=== PATIENT | male | born 1950 | race Caucasian/White ===

== ENCOUNTER → 2018-10-15 | Outpatient (CLI) | payer MEDICARE, BC ==
[2018-10-15 10:15] LABS: Appearance,Urine Clear (Clear); Bilirubin,Urine Negative (Negative); Blood,Urine Small (Negative); Color,Urine Yellow; Glucose,Urine (UA) Negative (Negative); Ketones,Urine Negative (Negative); Leukocyte Esterase,Urine Negative (Negative); Mucus,Urine Few /hpf; Nitrite,Urine Negative (Negative); PH, Urine 5.5 (5.0-8.0); Protein,Urine Trace (Negative); RBC,Urine 12 /hpf (0-5); Specific Gravity,Urine 1.024 (1.001-1.035); Urobilinogen,Urine <2.0 mg/dL (<2.0)
[2018-10-15 10:21] LABS: Basophils % (A) 0 %; Eosinophils % (A) 0 %; HCT 46.6 % (39.0-53.0); HGB 15.3 gm/dL (13.0-17.5); Lymphocytes # (A) 1.3 k/uL (1.0-4.8); Lymphocytes % (A) 11 %; MCHC 32.9 g/dL (31.0-37.0); MCV 94.1 fL (80.0-100.0); Mean Platelet Volume 6.7; Monocytes # (A) 0.5 k/uL (0-1.0); Monocytes % (A) 4 %; Neutrophils % (A) 84 %; Platelet Count 303 k/uL (150-450); RBC 4.95 m/uL (4.30-5.90); RDW 12.4 % (11.5-15.5); WBC 11.8 k/uL (3.8-10.6)
[2018-10-15 16:50] LABS: Vitamin D 25 Hydroxy 46.6 ng/mL (30.0-100.0)
[2018-10-15 16:51] LABS: T4, Free (Free Thyroxine) 1.1 ng/dL (0.80-1.80)
[2018-10-15 17:41] LABS: Albumin 5.1 g/dL (3.80-4.90); Albumin/Globulin Ratio 2.22 (1.20-2.10); Anion Gap 16.7 mmol/L (4.00-12.00); Calcium 10.2 mg/dL (8.7-10.3); Carbon Dioxide 29.3 mmol/L (21.6-31.8); Globulin 2.3 g/dL (2.1-3.7); LDL Cholesterol,Calculated 124.6 mg/dL (0.0-131.0); Total Bilirubin 0.5 mg/dL (0.2-1.2); Total Protein 7.4 g/dL (6.2-8.2); VLDL Calculation 25.4 mg/dL (5.00-40.00)
[2018-10-15 18:34] LABS: Hepatitis C IgG Antibody Non-Reactive (Non-Reactive)
== END | disposition home or self-care (01) ==
LOC: LABWHC1 08:11
PROVIDERS: ATTEND Nurse Practitioner Family
DX: Z00.01 Encounter for general adult medical examination with abnormal findings (principal); E55.9 Vitamin D deficiency, unspecified; R14.0 Abdominal distension (gaseous); Z11.59 Encounter for screening for other viral diseases
CPT/HCPCS: 36415; 80053; 80061; 81001; 82150; 82306; 83690; 84153; 84439; 84443; 85025; 86803

== ENCOUNTER → 2020-07-03 | Outpatient (CLI) | payer MEDICARE ==
--- NOTE | 2020-07-03 09:49 | CT ---
EXAMINATION TYPE: CT abdomen pelvis wo con DATE OF EXAM: 07/03/2020 HISTORY: Abdominal pain (suprapubic) area CT DLP: 420 mGycm. Automated Exposure Control for Dose Reduction was Utilized. TECHNIQUE: CT scan of the abdomen and pelvis is performed without oral or IV contrast. COMPARISON: CT abdomen and pelvis December 02, 2011 FINDINGS: Within the limitations of a non-contrast study, the following observations are made. LUNG BASES: No significant abnormality is appreciated. LIVER/GB: No significant abnormality is appreciated. PANCREAS: No significant abnormality is seen. SPLEEN: No significant abnormality is seen. ADRENALS: No significant abnormality is seen. KIDNEYS: No renal calculi or hydronephrosis is seen bilaterally. Bladder poorly distended with mild c oncentric wall thickening. BOWEL: Suboptimal evaluation bowel without enteric contrast. No suspicious small or large bowel dilat ation. Suspected duodenal diverticulum maximum is 46 unchanged from prior study with air-fluid level GENITAL ORGANS: Prostate gland felt mildly enlarged. Correlate clinically. Scattered adjacent pelvic phlebolith noted. LYMPH NODES: No greater than 1cm abdominal or pelvic lymph nodes are clearly appreciated. Redemonstra tion of numerous surgical clips in the retroperitoneum along the course of the aorta through the bifu rcation with additional surgical clips left groin region. Streak artifact is present making evaluatio n slightly suboptimal. OSSEOUS STRUCTURES: Slight lateral convex scoliotic curvature redemonstrated. Persistent sacralized l eft L5 segment Moderate to severe this space narrowing with endplate sclerosis L2-L3 and left L3-L4 l evels on current study has progressed from prior. Posterior spurring effaces the anterior thecal sac at L2-L3 and L4-L5 levels on sagittal and axial images. OTHER: No suspicious solid or cystic mass or fluid collection or hernia defect in the anterior abdomi nal wall. Coils right suprapubic region from prior hernia repair surgery are now present. IMPRESSION: No suspicious new or acute findings seen to account for patient's symptoms of suprapubic abdominal pain. No bowel obstruction or suspicious hernia defect noted.
== END | disposition home or self-care (01) ==
LOC: RADCTMAIN 09:00
PROVIDERS: ATTEND Family Medicine
DX: R10.9 Unspecified abdominal pain (principal)
CPT/HCPCS: 74176

== ENCOUNTER → 2021-07-14 | Outpatient (CLI) | payer MEDICARE ==
--- NOTE | 2021-07-15 04:59 | MR ---
EXAMINATION TYPE: MR cervical spine wo con DATE OF EXAM: 07/14/2021 COMPARISON: None HISTORY: Neck pain into both arms to fingers, and headaches for 10 months. Multiplanar multiecho imaging of the cervical spine without contrast. Cervical vertebra have normal alignment. There is degenerative disc space narrowing at C3-4 and C5-6 and C6-7. There is endplate spur formation and mild posterior disc bulging at these 3 levels as well. Spinal canal is narrowed to 6 mm at C3-4. Spinal canal measures 7 mm at C5-6 and C6-7. The cervical spinal cord shows no edema. There is multilevel cervical facet arthropathy. Prevertebral soft tissues are intact. There is no compression fracture. IMPRESSION: Multilevel spondylotic changes. There is some spinal stenosis as above at C3-4 and to a lesser extent C5-6 and C6-7.
== END | disposition home or self-care (01) ==
LOC: RADMRIMAIN 21:40
PROVIDERS: ATTEND Family Medicine
DX: M48.02 Spinal stenosis, cervical region (principal); M47.812 Spondylosis without myelopathy or radiculopathy, cervical region
CPT/HCPCS: 72141

== ENCOUNTER → 2022-07-01 | Outpatient (CLI) | payer MEDICARE ==
[2022-07-01 19:08] LABS: African American GFR (CKD) 81.1 (60.0-200.0); Anion Gap 11.5 mmol/L (10.00-18.00); BUN/Creat Ratio 13.64 Ratio (12.00-20.00); Blood Urea Nitrogen 14.6 mg/dL (9.0-27.0); Calcium 9.8 mg/dL (8.7-10.3); Carbon Dioxide 24.2 mmol/L (20.0-27.5); Potassium 4.5 mmol/L (3.5-5.5)
== END | disposition home or self-care (01) ==
LOC: LABWHC1 10:48
PROVIDERS: ATTEND Internal Medicine
DX: E87.5 Hyperkalemia (principal)
CPT/HCPCS: 36415; 80048

== ENCOUNTER → 2022-07-13 | Outpatient (CLI) | payer MEDICARE ==
--- NOTE | 2022-07-13 08:48 | US ---
EXAMINATION TYPE: US abdomen complete DATE OF EXAM: 07/13/2022 COMPARISON: CT CLINICAL HISTORY: R10.9 ABD DISCOMFORT. Abdominal discomfort. Patient states he has had a "teratoma c ancerous mass removed from somewhere in his abdomen". TECHNIQUE: Multiple sonographic images of the abdomen are obtained. FINDINGS: EXAM MEASUREMENTS: Liver Length: 15.5 cm Gallbladder Wall: 0.20 cm CBD: 0.5 cm Spleen: 8.7 cm Right Kidney: 10.4 x 6.2 x 5.1 cm Left Kidney: 11.2 x 4.5 x 6.0 cm CERTIFIED PROFESSIONAL CONTROLLER NOTES: Exam is limited due to overlying bowel gas. Pancreas: Limited due to gas. Liver: Appears very coarse with increased echogenicity. Gallbladder: Appears anechoic. Folds noted. Wall appears slightly jagged. Evidence for sonographic Clark's sign: No CBD: Measures upper limits Spleen: Appears wnl Right Kidney: Appearance of possible column of Jesus, no distinct masses seen Left Kidney: No hydronephrosis or masses seen Upper IVC: Appears wnl Abd Aorta: Proximal appears ectatic. Iliacs were obscured. Atherosclerotic changes noted. IMPRESSION: 1. No evidence of mass. 2. Hepatic steatosis. 3. No acute process.
== END | disposition home or self-care (01) ==
LOC: RADUSWWP 06:58
PROVIDERS: ATTEND Internal Medicine
DX: R10.9 Unspecified abdominal pain (principal)
CPT/HCPCS: 76700

== ENCOUNTER 2022-09-01 06:41 | Day surgery (SDC) | payer MEDICARE ==
[2022-08-31 11:56] VITALS: BMI 25.8
[2022-09-01] MEDS: LACTATED RINGERS 1,000 ML IV SCH ×2 (07:20→07:56)
[2022-09-01 07:35] LABS: Glucose,Whole Blood 106 mg/dL (70-110)
[2022-09-01 07:39] VITALS: RESP 16; TEMP 97.7
[2022-09-01] MEDS ORDERED: PROPOFOL 10 MG/ML 20 ML VIAL IV ONE (07:57)
[2022-09-01] MEDS ORDERED: LIDOCAINE 2% INJ 20 MG/ML (2 ML VIAL) ONE (07:57)
--- NOTE | 2022-09-01 08:15 | P.PCN ---
Date of Procedure: 09/01/22 Procedure(s) Performed: BRIEF HISTORY: Patient is a 72-year-old pleasant white male scheduled for an elective colonoscopy as a part of evaluation of prior history of colon polyps. His last colonoscopy was 5 years ago. PROCEDURE PERFORMED: Colonoscopy with biopsy. PREOPERATIVE DIAGNOSIS: History of colon polyps. IV sedation per Anesthesia. PROCEDURE: After informed consent was obtained, the patient, was brought into the endoscopy unit. IV sedation was administered by Anesthesia under continuous monitoring. Digital rectal examination was normal. Initially the Olympus CF-160 flexible video colonoscope was then inserted in the rectum, gradually advanced into the cecum without any difficulty. Careful examination was performed as the scope was gradually being withdrawn. Ileocecal valve and the appendiceal orifice were visualized and appeared normal. Prep was excellent. Mucosa of the cecum, a scending colon, transverse colon, descending colon, sigmoid colon, and rectum appeared normal. The proximal rectum there were 2 polyps measuring 3-4 mm in size removed by cold biopsy Scattered sigmoid diverticulosis seen. Retroflexion was performed in the rectum and small internal hemorrhoids were seen. The patient tolerated the procedure well. IMPRESSION: 2 polyps in the proximal rectum measuring 3 mm and 4 mm in size status post cold biopsy Scattered sigmoid diverticulosis Small internal hemorrhoids RECOMMENDATIONS: Findings of this examination were discussed with the patient as well as his family. He was advised to follow with the biopsy results. If the biopsy reveals adenoma he can have a repeat colonoscopy in 5 years.
[2022-09-01 08:34] VITALS: BP 137/93; PULSE 66
== END 2022-09-01 08:49 | disposition home or self-care (01) ==
LOC: ORWHC2ENDO 06:41
PROVIDERS: ATTEND Internal Medicine Gastroenterology
DX: Z12.11 Encounter for screening for malignant neoplasm of colon (principal); K62.1 Rectal polyp; K57.30 Diverticulosis of large intestine without perforation or abscess without bleeding; K64.8 Other hemorrhoids; C62.90 Malignant neoplasm of unspecified testis, unspecified whether descended or undescended; F17.200 Nicotine dependence, unspecified, uncomplicated; N40.0 Benign prostatic hyperplasia without lower urinary tract symptoms; Z98.890 Other specified postprocedural states; Z88.0 Allergy status to penicillin; Z86.010 Personal history of colon polyps
CPT/HCPCS: 88305; 45380; J2704; J2001

== ENCOUNTER → 2022-09-30 | Outpatient (CLI) | payer MEDICARE ==
[2022-09-30 11:24] LABS: Basophils # (A) 0.03 X 10*3/uL (0.00-0.10); Basophils % (A) 0.5 %; Eosinophils # (A) 0.07 X 10*3/uL (0.04-0.35); Eosinophils % (A) 1.1 %; HCT 47.2 % (39.6-50.0); HGB 15.7 g/dL (13.0-17.0); Immature Grans, Automated 0.3 %; Lymphocytes # (A) 2.26 X 10*3/uL (0.90-5.00); MCH 30.5 pg (27.0-32.0); MCHC 33.3 g/dL (32.0-37.0); MCV 91.7 fL (80.0-97.0); Mean Platelet Volume 8.8 fL (9.5-12.2); Monocytes # (A) 0.49 X 10*3/uL (0.20-1.00); Monocytes % (A) 7.4 %; NRBC Per 100 WBC 0 /100 WBCS (0.0-0.0); Neutrophils # (A) 3.78 X 10*3/uL (1.80-7.70); Neutrophils % (A) 56.7 %; Platelet Count 292 X 10*3/uL (140-440); RBC 5.15 X 10*6/uL (4.40-5.60); RDW 12.5 % (11.5-14.5); WBC 6.65 X 10*3/uL (4.50-10.00)
[2022-09-30 11:43] LABS: ALT 23 U/L (10-49); AST 31 U/L (14-35); African American GFR (CKD) 87.4 (60.0-200.0); Albumin 4.8 g/dL (3.8-4.9); Albumin/Globulin Ratio 1.78 (1.60-3.17); Alkaline Phosphatase 68 U/L (41-126); Blood Urea Nitrogen 14.8 mg/dL (9.0-27.0); Calcium 9.3 mg/dL (8.7-10.3); Chloride 102 mmol/L (96-109); Chol/HDL Ratio 3.57 Ratio; Globulin 2.7 g/dL (1.6-3.3); Glucose 114 mg/dL (70-110); LDL Cholesterol,Calculated 130.7 mg/dL (0.0-131.0); Lipase 296 U/L (14-60); Non-African American GFR(CKD) 75.4 (60.0-200.0); Potassium 4.4 mmol/L (3.5-5.5); Sodium 138 mmol/L (135-145); Total Protein 7.5 g/dL (6.2-8.2)
== END | disposition home or self-care (01) ==
LOC: LABWHC1 07:05
PROVIDERS: ATTEND Internal Medicine
DX: Z12.5 Encounter for screening for malignant neoplasm of prostate (principal); M50.20 Other cervical disc displacement, unspecified cervical region
CPT/HCPCS: 36415; 80053; 80061; 83690; 84153; 84443; 85025

== ENCOUNTER → 2022-10-16 | Outpatient (CLI) | payer MEDICARE ==
--- NOTE | 2022-10-16 12:21 | US ---
EXAMINATION TYPE: US duplex aorta DATE OF EXAM: 10/16/2022 COMPARISON: US 2021 CLINICAL HISTORY: Z13.6 SCREENING FOR CARDIOVASCULAR DISORDERS. Screening. Prior smoker. TECHNIQUE: Multiple sonographic images of the abdominal aorta are obtained. FINDINGS: EXAM MEASUREMENTS: Abdominal Aorta: Proximal: 3.1 x 3.0 cm. Mid: 2.3 x 2.3 cm. Distal: 2.1 x 2.3 cm. Bifurcation: 1.5 x 1.5 cm. Left: 1.4 x 1.5 cm. PAYROLL PROFESSIONAL NOTES: Proximal aorta appears aneurysmal. Bilateral iliacs measured upper limits. Limited due to gas. IMPRESSION: 1. No suspicious changes to suggest aneurysmal dilatation of the aorta on screening ultrasound.
== END | disposition home or self-care (01) ==
LOC: RADUSWWP 07:03
PROVIDERS: ATTEND Internal Medicine
DX: Z13.6 Encounter for screening for cardiovascular disorders (principal); Z87.891 Personal history of nicotine dependence
CPT/HCPCS: 93979

== ENCOUNTER → 2022-10-23 | Outpatient (CLI) | payer MEDICARE ==
--- NOTE | 2022-10-23 14:08 | CT ---
EXAMINATION TYPE: CT abdomen w con CT DLP: 769 mGycm, Automated exposure control for dose reduction was used. DATE OF EXAM: 10/23/2022 1:34 PM COMPARISON: CT abdomen pelvis most recent from 07/03/2020 . CLINICAL INDICATION:Male, 72 years old with history of K85.90 ACUTE PANCREATITIS WITHOUT NECROSIS; Ac upper [place] pancreatitis without necrosis TECHNIQUE: Standard CT of the abdomen following the administration of 100 cc of Isovue 300 IV contr ast material. Oral contrast administered. Coronal and sagittal reformats were performed. FINDINGS: LOWER CHEST: Unremarkable ABDOMEN LIVER: Unremarkable GALLBLADDER AND BILE DUCTS: Unremarkable. PANCREAS: No ductal dilatation. No surrounding peripancreatic inflammation. No peripancreatic fluid c ollections. No focal lesions. The pancreas diffusely enhances unremarkably. SPLEEN: Unremarkable. ADRENAL GLANDS: Unremarkable. KIDNEYS AND URETERS: No evidence of hydronephrosis or renal calculus. The kidneys enhance symmetrical ly without focal lesion. STOMACH AND BOWEL: Stomach is unremarkable. Suspected duodenal diverticulum involving the second/thir d portion, unchanged. Enteric contrast reaches the ascending colon. No evidence of bowel obstruction. PERITONEUM/RETROPERITONEUM: No evidence of pneumoperitoneum or free fluid. Multiple surgical clips de monstrated within the retroperitoneum. This creates streak artifact limiting evaluation. VASCULATURE: No evidence of aortic aneurysm. MUSCULOSKELETAL: No acute osseous abnormalities. [id number] multilevel degenerative disc dise ase. LYMPH NODES: No gross evidence for lymphadenopathy. SOFT TISSUE/ABDOMINAL WALL: Unremarkable IMPRESSION: No acute abdominal process. No peripancreatic inflammatory changes or fluid collections.
== END | disposition home or self-care (01) ==
LOC: RADCTMAIN 11:25
PROVIDERS: ATTEND Internal Medicine
DX: K85.90 Acute pancreatitis without necrosis or infection, unspecified (principal); E11.9 Type 2 diabetes mellitus without complications
CPT/HCPCS: 82565; 84520; 74160; 36415; Q9967

== ENCOUNTER → 2023-11-17 | Outpatient (CLI) | payer MEDICARE ==
--- NOTE | 2023-11-17 11:25 | XR ---
EXAMINATION TYPE: XR abdomen and pelvis 2V DATE OF EXAM: 11/17/2023 11:15 AM CLINICAL INDICATION:Male, 73 years old with history of Z1810 RETAINED METAL FRAGMENTS, UNSPECIFIED; P HH COMPARISON: None. TECHNIQUE: Frontal and lateral views of the abdomen and pelvis. FINDINGS: The bowel gas pattern is nonspecific without dilated loops of small or large bowel. There i s no evidence for organomegaly or pneumoperitoneum. The osseous structures are intact. No abnormal calcifications are present. Fecal material and gas are demonstrated throughout the colon and rectum. Multiple surgical clips project over the abdomen/particularly in the midline near the spine. Hernia repair anchors are also present near the right inguinal canal. IMPRESSION: 1. Multiple surgical clips project over the abdomen/particularly in the midline near the spine. Jorge Luis ia repair anchors are also present near the right inguinal canal. 2. Nonspecific bowel gas pattern without radiographic evidence for acute process.
== END | disposition home or self-care (01) ==
LOC: RADXRMAIN 10:49
PROVIDERS: ATTEND Orthopaedic Surgery Orthopaedic Surgery of the Spine
DX: R14.0 Abdominal distension (gaseous) (principal); Z18.10 Retained metal fragments, unspecified; M47.22 Other spondylosis with radiculopathy, cervical region; M50.122 Cervical disc disorder at C5-C6 level with radiculopathy; M50.123 Cervical disc disorder at C6-C7 level with radiculopathy; M25.78 Osteophyte, vertebrae; M79.12 Myalgia of auxiliary muscles, head and neck
CPT/HCPCS: 74019

== ENCOUNTER → 2024-01-07 | Outpatient (CLI) | payer MEDICARE ==
--- NOTE | 2024-01-07 08:27 | CT ---
EXAMINATION TYPE: CT cervical spine wo con CT DLP: 508.3 mGycm, Automated exposure control for dose reduction was used. DATE OF EXAM: 01/07/2024 8:11 AM COMPARISON: None. CLINICAL INDICATION:Male, 73 years old with history of M48.02 SPINAL STENOSIS; PHH, spinal stenosis TECHNIQUE: Axial CT images from the skull base to the inferior aspect of T2 we obtained without intra venous contrast. Coronal and sagittal reformatted images were also reviewed. Contrast used: (if blank None) Oral contrast used: (if blank None) FINDINGS: Fracture: None. Osseous structures: Minimal osteophyte formation and facet and uncovertebral joint arthropathy throug hout the visualized spine. Vertebral alignment: Grade 1 anterolisthesis of C4 on C5. Spinal canal/Neural Foramina: Disc osteophyte complexes at C3-C4 and C5-C6 with at least mild spinal canal stenosis. Facet joint uncovertebral joint arthropathy scattered throughout the cervical spine w ith varying degrees of neural foraminal stenosis. Stenosis worse at C3-C4 through C6-C7 with moderate to severe bilateral. Neck soft tissues: Prevertebral soft tissues are within normal limits. Other: The airway is patent. Mild paraseptal emphysema changes throughout the lungs. Atherosclerosis of the carotid bifurcations. IMPRESSION: 1. No evidence of cervical spine fracture. 2. Moderate multilevel degenerative disc disease. No foraminal stenosis throughout the cervical spine is moderate to severe bilaterally. 3. Mild emphysema.
== END | disposition home or self-care (01) ==
LOC: RADCTMAIN 07:52
PROVIDERS: ATTEND Orthopaedic Surgery Orthopaedic Surgery of the Spine
DX: M50.30 Other cervical disc degeneration, unspecified cervical region (principal); M48.02 Spinal stenosis, cervical region; J43.9 Emphysema, unspecified
CPT/HCPCS: 72125

== ENCOUNTER → 2024-02-07 | Outpatient (CLI) | payer MEDICARE ==
[2024-02-07 18:55] LABS: C Reactive Protein <0.30 mg/dL (0.00-0.80); Glucose 151 mg/dL (70-110)
[2024-02-07 20:22] LABS: Basophils # (A) 0.05 X 10*3/uL (0.00-0.10); Basophils % (A) 0.7 %; Eosinophils % (A) 1.4 %; HCT 49.8 % (39.6-50.0); HGB 16.6 g/dL (13.0-17.0); Lymphocytes # (A) 2.21 X 10*3/uL (0.90-5.00); Lymphocytes % (A) 31.8 %; MCH 31.3 pg (27.0-32.0); MCHC 33.3 g/dL (32.0-37.0); Mean Platelet Volume 9.3 FL (9.5-12.2); Monocytes # (A) 0.48 X 10*3/uL (0.20-1.00); Monocytes % (A) 6.9 %; NRBC Per 100 WBC 0 X 10*3/uL (0.00-0.01); Neutrophils # (A) 4.09 X 10*3/uL (1.80-7.70); Neutrophils % (A) 58.8 %; Platelet Count 306 X 10*3/uL (140-440); RDW 12.2 % (11.5-14.5); WBC 6.96 X 10*3/uL (4.50-10.00)
[2024-02-07 20:37] LABS: Erythrocyte Sedimentation Rate 2 mm/Hr (0-20)
== END | disposition home or self-care (01) ==
LOC: LABWHC1 07:32
PROVIDERS: ATTEND Family Medicine
DX: Z00.01 Encounter for general adult medical examination with abnormal findings (principal); I10 Essential (primary) hypertension; E11.9 Type 2 diabetes mellitus without complications
CPT/HCPCS: 36415; 82947; 85025; 85652; 86140

== ENCOUNTER 2024-02-09 12:07 | Observation (INO) | payer MEDICARE ==
--- NOTE | 2024-02-09 13:10 | ED ---
General Adult HPI - General Chief complaint: Neuro Symptoms/Deficit Stated complaint: Neuro Symptoms Time Seen by Provider: 02/09/24 12:46 Source: patient, family, RN notes reviewed Mode of arrival: ambulatory Limitations: no limitations - History of Present Illness Initial comments: Patient is a pleasant 73-year-old male present to the emergency department with family with concern for headaches. Patient has been having headaches for the past 10 days. Headaches have been waxing and waning. Discomfort was severe last night, mild at this time. Patient always has at least a low mild headache. Headache is mostly temporal, somewhat more on the left. Patient has been having blurred vision since he had cataract surgery done a month ago. Patient did have double vision a couple times with increasing severity of headache. Patient had an episode yesterday where he was lightheaded and nauseated and did vomit once. No syncope. No weakness. - Related Data Home Medications Medication Instructions Recorded Confirmed No Known Home Medications 08/31/22 09/01/22 Allergies Allergy/AdvReac Type Severity Reaction Status Date / Time Penicillins Allergy Unknown Unknown Verified 02/09/24 12:17 Childhood Review of Systems ROS Statement: Those systems with pertinent positive or pertinent negative responses have been documented in the HPI. ROS Other: All systems not noted in ROS Statement are negative. Constitutional: Denies: fever Eyes: Reports: as per HPI. Denies: eye pain ENT: Denies: ear pain Respiratory: Denies: cough Cardiovascular: Denies: chest pain Neurological: Reports: as per HPI, headache. Denies: weakness Past Medical History Past Medical History: Cancer, Musculoskeletal Disorder, Prostate Disorder Additional Past Medical History / Comment(s): ENLARGED PROSTATE,DDD; HYPOGLYCEMIA, HX OF TESTICULAR CA. , HERNIA AT ABD INCISION. History of Any Multi-Drug Resistant Organisms: None Reported Past Surgical History: Back Surgery Additional Past Surgical History / Comment(s): TESTICLE REMOVED FOR CA,BENIGN LUMP REMOVED NECK, EXPLORATORY SURGERY. Past Anesthesia/Blood Transfusion Reactions: No Reported Reaction Past Psychological History: No Psychological Hx Reported Smoking Status: Former smoker Past Alcohol Use History: None Reported Past Drug Use History: None Reported - Past Family History Mother Family Medical History: No Reported History General Exam Limitations: no limitations General appearance: alert, in no apparent distress Head exam: Present: normocephalic, other (No temporal artery tenderness) Eye exam: Present: normal appearance, PERRL, EOMI. Absent: nystagmus ENT exam: Present: normal oropharynx Neck exam: Present: normal inspection. Absent: tenderness Respiratory exam: Present: normal lung sounds bilaterally Cardiovascular Exam: Present: regular rate, normal rhythm GI/Abdominal exam: Present: soft. Absent: tenderness Extremities exam: Present: normal inspection Neurological exam: Present: alert, oriented X3, CN II-XII intact. Absent: motor sensory deficit Expanded Neurological exam: Present: protecting the airway Speech: Present: fluid speech Cranial nerves: EOM's Intact: Normal, Facial Sensation: Normal Sensory exam: Upper Extremity Light Touch: Normal, Lower Extremity Light Touch: Normal Motor strength exam: RUE: 5, LUE: 5, RLE: 5, LLE: 5 Eye Response: (4) open spontaneously Motor Response: (6) obeys commands Verbal Response: (5) oriented Psychiatric exam: Present: normal affect, normal mood Skin exam: Present: normal color Course Vital Signs 02/09/24 02/09/24 12:12 13:28 Temperature 97.6 F Pulse Rate 78 79 Respiratory 16 16 Rate Blood Pressure 156/86 128/96 O2 Sat by Pulse 97 96 Oximetry EKG Findings - EKG Results: EKG: interpreted by ERMD, sinus rhythm, normal axis, normal QRS, normal ST/T Medical Decision Making - Medical Decision Making Was pt. sent in by a medical professional or institution (ADON[facility] Ventura, [employer] WORK[employer], urgent care, hospital, or detention...) When possible be specific @ -No Did you speak to anyone other than the patient for history (EMS, parent, family, police, friend...)? What history was obtained from this source @ -Family is present and helps provide history including duration of symptoms Did you review nursing and triage notes (agree or disagree)? Why? @ -I reviewed and agree with nursing and triage notes Were old charts reviewed (outside hosp., previous admission, EMS record, old EKG, old radiological studies, urgent care reports/EKG's, detention records)? Report findings @ -No old charts were reviewed Differential Diagnosis (chest pain, altered mental status, abdominal pain women, abdominal pain men, vaginal bleeding, weakness, fever, dyspnea, syncope, headache, dizziness, GI bleed, back pain, seizure, CVA, palpatations, mental health, musculoskeletal)? @ -Differential Headache: Migraine, tension, cluster, carbon monoxide, central venous thrombosis, pension karma temporal arteritis, acute closure glaucoma, intercranial hemorrhage, mastoiditis, sinusitis, head injury, this is not meant to be an all-inclusive list. EKG interpreted by me (3pts min.). @ -As above X-rays interpreted by me (1pt min.). @ -Chest x-ray shows no acute process CT interpreted by me (1pt min.). @ -CT brain does not reveal acute abnormality. U/S interpreted by me (1pt. min.). @ -None done What testing was considered but not performed or refused? (CT, X-rays, U/S, labs)? Why? @ -None What meds were considered but not given or refused? Why? @ -None Did you discuss the management of the patient with other professionals (professionals i.e. , PA, [employer] WORKER, lab, RT, psych nurse, director social service, brim ironer hand, teacher, workplace rehabilitation officer, director of casework)? Give summary @ -Case discussed with Dr. Greco who will admit covering hospital call Was smoking cessation discussed for >3mins.? @ -No Was critical care preformed (if so, how long)? @ -No Were there social determinants of health that impacted care today? How? (Homelessness, low income, unemployed, alcoholism, drug addiction, transportation, low edu. Level, literacy, decrease access to med. care, snf, rehab)? @ -No Was there de-escalation of care discussed even if they declined (Discuss DNR or withdrawal of care, Hospice)? DNR status @ -No What co-morbidities impacted this encounter? (DM, HTN, Smoking, COPD, CAD, Cancer, CVA, ARF, Chemo, Hep., AIDS, mental health diagnosis, sleep apnea, morbid obesity)? @ -None Was patient admitted / discharged? Hospital course, mention meds given and route, prescriptions, significant lab abnormalities, going to OR and other pertinent info. @ -Patient and family are made aware of results and plan. Patient will be admitted with neurology counts Undiagnosed new problem with uncertain prognosis? @ -No Drug Therapy requiring intensive monitoring for toxicity (Heparin, Nitro, Insulin, Cardizem)? @ -No Were any procedures done? @ -No Diagnosis/symptom? @ -Headache, near syncope Acute, or Chronic, or Acute on Chronic? @ -Acute, acute Uncomplicated (without systemic symptoms) or Complicated (systemic symptoms)? @ -Complicated with blurred vision Side effects of treatment? @ -No Exacerbation, Progression, or Severe Exacerbation? @ -No Poses a threat to life or bodily function? How? (Chest pain, USA, PA, pneumonia, PE, COPD, DKA, ARF, appy, cholecystitis, CVA, Diverticulitis, Homicidal, Suicidal, threat to staff... and all critical care pts) @ -No - Lab Data Result diagrams: 02/09/24 13:26 02/09/24 13:26 Lab Results 02/09/24 02/09/24 02/09/24 Range/Units 13:26 13:26 13:26 WBC 7.5 (3.8-10.6) k/uL RBC 5.02 (4.30-5.90) m/uL Hgb 15.8 (13.0-17.5) gm/dL Hct 47.0 (39.0-53.0) % MCV 93.6 (80.0-100.0) fL MCH 31.5 (25.0-35.0) pg MCHC 33.7 (31.0-37.0) g/dL RDW 12.4 (11.5-15.5) % Plt Count 284 (150-450) k/uL MPV 7.5 Neutrophils % 61 % Lymphocytes % 29 % Monocytes % 6 % Eosinophils % 2 % Basophils % 0 % Neutrophils # 4.5 (1.3-7.7) k/uL Lymphocytes # 2.2 (1.0-4.8) k/uL Monocytes # 0.5 (0-1.0) k/uL Eosinophils # 0.1 (0-0.7) k/uL Basophils # 0.0 (0-0.2) k/uL PT 9.6 L (10.0-12.5) sec INR 0.8 (<1.2) APTT 23.5 (22.0-30.0) sec Sodium 136 L (137-145) mmol/L Potassium 5.2 H (3.5-5.1) mmol/L Chloride 104 (98-107) mmol/L Carbon Dioxide 22 (22-30) mmol/L Anion Gap 10 mmol/L BUN 20 (9-20) mg/dL Creatinine 0.78 (0.66-1.25) mg/dL Est GFR (CKD-EPI)AfAm >90 (>60 ml/min/1.73 sqM) Est GFR (CKD-EPI)NonAf >90 (>60 ml/min/1.73 sqM) Glucose 127 H (74-99) mg/dL Calcium 9.2 (8.4-10.2) mg/dL Total Bilirubin 1.2 (0.2-1.3) mg/dL AST 40 (17-59) U/L ALT 28 (4-49) U/L Alkaline Phosphatase 79 (38-126) U/L Creatine Kinase 172 H (55-170) U/L C-Reactive Protein <0.5 (<1.0) mg/dL Total Protein 7.3 (6.3-8.2) g/dL Albumin 4.4 (3.5-5.0) g/dL Disposition Clinical Impression: Headache, Near syncope Disposition: ADMITTED IP TO THIS HOSP Is patient prescribed a controlled substance at d/c from ED?: No Referrals: Leroy Anderson DO [Primary Care Provider] - 1-2 days Time of Disposition: 16:58
[2024-02-09] MEDS: METOCLOPRAMIDE 5 MG/ML 2 ML VIAL IVP STA (13:30)
[2024-02-09 13:47] LABS: Basophils % (A) 0 %; Eosinophils # (A) 0.1 k/uL (0-0.7); Eosinophils % (A) 2 %; HGB 15.8 gm/dL (13.0-17.5); Lymphocytes # (A) 2.2 k/uL (1.0-4.8); Lymphocytes % (A) 29 %; MCH 31.5 pg (25.0-35.0); MCHC 33.7 g/dL (31.0-37.0); MCV 93.6 fL (80.0-100.0); Mean Platelet Volume 7.5; Monocytes # (A) 0.5 k/uL (0-1.0); Monocytes % (A) 6 %; Neutrophils # (A) 4.5 k/uL (1.3-7.7); Neutrophils % (A) 61 %; Platelet Count 284 k/uL (150-450); RBC 5.02 m/uL (4.30-5.90); RDW 12.4 % (11.5-15.5); WBC 7.5 k/uL (3.8-10.6)
[2024-02-09 14:08] LABS: ALT 28 U/L (4-49); AST 40 U/L (17-59); African American GFR (CKD) >90 (>60 ml/min/1.73 sqM); Albumin 4.4 g/dL (3.5-5.0); Alkaline Phosphatase 79 U/L (38-126); Anion Gap 10 mmol/L; Blood Urea Nitrogen 20 mg/dL (9-20); C Reactive Protein <0.5 mg/dL (<1.0); Calcium 9.2 mg/dL (8.4-10.2); Carbon Dioxide 22 mmol/L (22-30); Chloride 104 mmol/L (98-107); Creatine Kinase 172 U/L (55-170); Glucose 127 mg/dL (74-99); Non-African American GFR(CKD) >90 (>60 ml/min/1.73 sqM); Sodium 136 mmol/L (137-145); Total Bilirubin 1.2 mg/dL (0.2-1.3); Total Protein 7.3 g/dL (6.3-8.2)
[2024-02-09 14:10] LABS: Potassium 5.2 mmol/L (3.5-5.1)
--- NOTE | 2024-02-09 14:11 | XR ---
EXAMINATION TYPE: XR chest 2V DATE OF EXAM: 02/09/2024 2:08 PM CLINICAL INDICATION:Male, 73 years old with history of altered mental status; [facility] COMPARISON: Chest radiographs from on 2011. TECHNIQUE: XR chest 2V Frontal and lateral views of the chest. FINDINGS: Lungs/Pleura: There is flattening of the diaphragm with increased lucency of the lungs. No evidence o f pneumothorax, pleural effusion or focal consolidation. Pulmonary vascularity: Unremarkable. Heart/mediastinum: Cardiomediastinal silhouette is unremarkable. Musculoskeletal: No acute osseous pathology. IMPRESSION: 1. No acute cardiopulmonary disease process. 2. COPD changes.
[2024-02-09 14:17] LABS: INR 0.8 (<1.2); Partial Thromboplastin Time 23.5 sec (22.0-30.0); Prothrombin Time 9.6 sec (10.0-12.5)
[2024-02-09] MEDS ORDERED: DEXTROSE 50% SYRINGE 50 ML IVP PRN ×4 (15:02→20:54)
--- NOTE | 2024-02-09 15:10 | CT ---
EXAMINATION TYPE: CT brain wo con CT DLP: combined 1777.2 mGycm, Automated exposure control for dose reduction was used. DATE OF EXAM: 02/09/2024 2:52 PM COMPARISON: . CLINICAL INDICATION:Male, 73 years old with history of Neuro deficit, acute, stroke suspected, blurre d vision in left eye, dizziness, headaches [id number] TECHNIQUE: Brain: Axial CT images of the brain were obtained with coronal and sagittal reformats created and rev iewed. Contrast used: None. Oral contrast used: None. FINDINGS: Brain: Extra-axial spaces: No abnormal extra-axial fluid collections. Ventricular system: Within normal limits Cerebral parenchyma: No acute intraparenchymal hemorrhage or mass effect. The diane-white junction is well differentiated. Scattered hypoattenuating areas are seen within the white matter. Cerebellum: Unremarkable. Mass effect: No evidence of midline shift. Intracranial vasculature: unremarkable Soft tissues: Normal. Calvarium/osseous structures: No depressed skull fracture. Paranasal sinuses and mastoid air cells: Mild scattered paranasal sinus disease. Visualized orbits: Orbital contents are intact. IMPRESSION: No acute intracranial process. Age-related involution and age-related microangiopathy
--- NOTE | 2024-02-09 16:29 | CT ---
EXAMINATION TYPE: CT angio head neck CT DLP: combined 1777.2 mGycm, Automated exposure control for dose reduction was used. DATE OF EXAM: 02/09/2024 2:52 PM COMPARISON: . CLINICAL INDICATION:Male, 73 years old with history of Neuro deficit, acute, stroke suspected; PHH, b lurred vision in left eye, dizziness, headaches [id number] TECHNIQUE: Axially acquired helical CT angiogram of the head and neck was obtained with contrast. Axi al images are supplemented with 3D reconstructions and MIP images which were post-processed at an in dependent workstation. NASCET criteria used. Contrast used:80 mL of Isovue 300 with IV Contrast, Oral contrast used: None. FINDINGS: CTA HEAD: No evidence of acute intracranial hemorrhage, mass effect, or midline shift. The ventricles, sulci, a nd cisterns are unremarkable. The visualized portions of the internal carotid arteries, middle cerebral arteries, anterior cerebral arteries, and posterior cerebral arteries demonstrate no definite flow limiting stenosis. The basilar and vertebral arteries demonstrate no flow-limiting stenosis. CTA NECK: Right Carotid System: The common carotid artery and external carotid artery are patent. The carotid bifurcation demonstrate s no evidence of hemodynamically significant stenosis. The remaining portions of the internal carotid artery demonstrate normal size without significant narrowing.A few tiny calcified plaques in the rig ht bifurcation contrast 20% stenosis or less. Left Carotid System: The common carotid artery and external carotid artery are patent. The carotid bifurcation demonstrate s no evidence of hemodynamically significant stenosis. There is a calcified plaque causing perhaps 50 % stenosis at the left carotid bifurcation. The remaining portions of the internal carotid artery dem onstrate normal size without significant narrowing. Vertebral arteries are patent without evidence hemodynamically significant stenosis. There is a three-vessel aortic arch. The origins of the great vessels are patent. No evidence of he modynamically significant stenosis. Upper thorax: IMPRESSION: 1. No evidence of dissection of the cervical internal carotid arteries or vertebral arteries or any e vidence of significant stenosis at the carotid bifurcations. 2. No evidence of intracranial high-grade stenosis or intracranial aneurysm.
[2024-02-09] MEDS ORDERED: NALOXONE 0.4 MG/ML 1 ML VIAL IV PRN (16:58)
[2024-02-09] MEDS ORDERED: HYDROmorphone 0.5 MG/0.5 ML SYRINGE IVP PRN (16:58)
[2024-02-09] MEDS ORDERED: HYDROmorphone 1 MG/ML 1 ML SYRINGE IVP PRN (16:58)
[2024-02-09] MEDS ORDERED: ONDANSETRON 4 MG/2 ML VIAL IVP PRN (16:58)
--- NOTE | 2024-02-09 18:10 | CA ---
Transthoracic Echo Report Name: Corona Anders Age: 73 Gender: M : 1950 Exam Date: 02/09/2024 15:42 Exam Location: [place] [facility] Ht (in): 72 Wt (lb): 200 Ordering Physician: Jez Marquez MD Attending/Referring Phys: Steamfitter Tessy Nelson RDCS Procedure CPT: Indications: Headache Cardiac Hx: Technical Quality: Technically difficult study Contrast 1: Definity Total Dose (mL): 2 Contrast 2: Total Dose (mL): MEASUREMENTS (Male / Female) Normal Values 2D ECHO LV Diastolic Diameter PLAX 3.4 cm 4.2 - 5.9 / 3.9 - 5.3 cm LV Systolic Diameter PLAX 2.0 cm IVS Diastolic Thickness 1.5 cm 0.6 - 1.0 / 0.6 - 0.9 cm LVPW Diastolic Thickness 1.5 cm 0.6 - 1.0 / 0.6 - 0.9 cm LV Relative Wall Thickness 0.9 RV Internal Dim ED PLAX 2.9 cm LA Volume 52.1 cm??? 18 - 58 / 22 - 52 cm??? LA Volume Index 24.1 cm???/m??? 16 - 28 cm???/m??? M-MODE Aortic Root Diameter MM 3.3 cm LA Systolic Diameter MM 3.8 cm LA Ao Ratio MM 1.2 AV Cusp Separation MM 2.2 cm DOPPLER AV Peak Velocity 80.9 cm/s AV Peak Gradient 2.6 mmHg AV Mean Velocity 61.6 cm/s AV Mean Gradient 1.6 mmHg AV Velocity Time Integral 14.5 cm LVOT Peak Velocity 62.4 cm/s LVOT Peak Gradient 1.6 mmHg LVOT Velocity Time Integral 12.2 cm Mitral E Point Velocity 34.2 cm/s Mitral A Point Velocity 73.3 cm/s Mitral E to A Ratio 0.5 MV E' Velocity 5.5 cm/s Mitral E to MV E' Ratio 6.3 FINDINGS Left Ventricle Moderately increased left ventricular wall thickness. Left ventricular cavity size normal. Normal left ventricular systolic function with no obvious regional wall motion abnormalities. Left ventricular ejection fraction is estimated at 55-60 %. Right Ventricle Normal right ventricular size and function. Right ventricular systolic pressure within normal limits. Right Atrium Normal right atrial size. Left Atrium Normal left atrial size. Mitral Valve Structurally normal mitral valve. No mitral stenosis, regurgitation or prolapse. Aortic Valve No aortic valve stenosis or regurgitation.aortic valve not well visualized. Tricuspid Valve Structurally normal tricuspid valve. Pulmonic Valve Pulmonic valve not well visualized. Pericardium No pericardial effusion. Aorta Normal size aortic root and proximal ascending aorta. CONCLUSIONS Technically difficult study. Definity ECHO contrast used for improved visualization of the endocardial borders (inadequate visualization of two or more contiguous segments). 1. Normal left ventricle size and systolic function 2. Very limited Doppler study with no significant abnormalities Previewed by: Dr. Braulio Lacy MD (Electronically Signed) Final Date: 09 February 2024 18:09
[2024-02-09] MEDS: SODIUM CHLORIDE 0.9% 1,000 ML IV SCH (18:11)
[2024-02-09] MEDS: INSULIN ASPART (NovoLOG) 100 UNIT/ML VIAL SQ SCH (19:43)
[2024-02-09 20:10] LABS: Glucose,Whole Blood 187 mg/dL (70-110)
[2024-02-09] MEDS: traMADol 50 MG TAB PO PRN (20:44)
[2024-02-09] MEDS: GABAPENTIN 100 MG CAP PO SCH (20:46)
[2024-02-09] MEDS: metFORMIN 500 MG TAB PO SCH (20:48)
[2024-02-09] MEDS: prednisoLONE ACETATE 1% OPHTH DROPS 5 ML BTL LEFT EYE SCH (20:49)
[2024-02-10 06:19] LABS: Glucose,Whole Blood 143 mg/dL (70-110)
[2024-02-10] MEDS: ATORVASTATIN 40 MG TAB PO SCH (09:15)
[2024-02-10] MEDS: ACETAMINOPHEN TAB 325 MG TAB PO PRN (09:17)
[2024-02-10 12:11] LABS: Glucose,Whole Blood 144 mg/dL (70-110)
--- NOTE | 2024-02-10 12:53 | P.HPIM ---
History of Present Illness H&P Date: 02/09/24 History of present illness; patient is a 73-year-old gentleman past medical history significant for recently diagnosed diabetes mellitus, who presented to the ER for concern of headache. Patient states that he was all right 10 days back when he started noticing blurred vision and headache. Patient also complaining of increased lethargy and weakness. Patient stated that he has been feeling more tired than normal. Blurred vision is present throughout the day but mostly in the left eye. Denies any slurred speech. Denies weakness of any extremity. Headache has been intermittent, present in the temporal region mostly on the left side. Denies any nausea or vomiting associated with this headache. Because of the symptoms, patient went to see an full time staff interpreter who told him to come to the ER Initial lab work done in the ER showed WBC 7.5, hemoglobin 15.8, platelet count 284, sodium 136, potassium 5.2, BUN 20, creatinine 0.78, glucose 127, CK1 72 EKG done in the ER showed heart rate of70, no ST segment elevation or depression seen, no T-wave inversions seen. Chest x-ray done in the ER showed no acute cardiopulmonary process CT head done showed no acute intracranial process CTA head and neck done showed no significant stenosis, aneurysm or thrombus in the intracranial circulation Patient admitted to internal medicine service REVIEW OF SYSTEMS: CONSTITUTIONAL: No fever, no malaise, no fatigue. HEENT: No recent visual problems or hearing problems. Denied any sore throat. CARDIOVASCULAR: No chest pain, orthopnea, PND, no palpitations, no syncope. PULMONARY: No shortness of breath, no cough, no hemoptysis. GASTROINTESTINAL: No diarrhea, no nausea, no vomiting, no abdominal pain. NEUROLOGICAL: As mentioned above HEMATOLOGICAL: Denies any bleeding or petechiae. GENITOURINARY: Denies any burning micturition, frequency, or urgency. MUSCULOSKELETAL/RHEUMATOLOGICAL: Denies any joint pain, swelling, or any muscle pain. ENDOCRINE: Denies any polyuria or polydipsia. The rest of the 14-point review of systems is negative. PHYSICAL EXAMINATION: GENERAL: The patient is alert and oriented x3, not in any acute distress. Well developed, well nourished. HEENT: Pupils are round and equally reacting to light. EOMI. No scleral icterus. No conjunctival pallor. Normocephalic, atraumatic. No pharyngeal erythema. No thyromegaly. CARDIOVASCULAR: S1 and S2 present. No murmurs, rubs, or gallops. PULMONARY: Chest is clear to auscultation, no wheezing or crackles. ABDOMEN: Soft, nontender, nondistended, normoactive bowel sounds. No palpable organomegaly. MUSCULOSKELETAL: No joint swelling or deformity. EXTREMITIES: No cyanosis, clubbing, or pedal edema. NEUROLOGICAL: Gross neurological examination did not reveal any focal deficits. SKIN: No rashes. Assessment and plan Headache Blurred vision Diabetes mellitus Monitor vital signs Monitor CBC Monitor CMP Continue telemetry monitoring Continue neurochecks Check ESR Check CRP Ordered 2D echo Monitor blood sugar level, continue/scale insulin Consult neurology Labs and medication were reviewed.. Continue same treatment. Continue with symptomatic treatment. Resume home medication. Monitor labs and vitals. DVT and GI prophylaxis. Further recommendations as per clinical course of the patient Dictation was produced using [employer] dictation software. please excuse any grammatical, word or spelling errors. Past Medical History Past Medical History: Cancer, Musculoskeletal Disorder, Prostate Disorder Additional Past Medical History / Comment(s): ENLARGED PROSTATE,DDD; HYPOGLYCEMIA, HX OF TESTICULAR CA. , HERNIA AT ABD INCISION. History of Any Multi-Drug Resistant Organisms: None Reported Past Surgical History: Back Surgery Additional Past Surgical History / Comment(s): TESTICLE REMOVED FOR CA,BENIGN LUMP REMOVED NECK, EXPLORATORY SURGERY. Past Anesthesia/Blood Transfusion Reactions: No Reported Reaction Past Psychological History: No Psychological Hx Reported Smoking Status: Former smoker Past Alcohol Use History: None Reported Past Drug Use History: None Reported - Past Family History Mother Family Medical History: No Reported History Medications and Allergies Home Medications Medication Instructions Recorded Confirmed Type No Known Home Medications 08/31/22 09/01/22 History Allergies Allergy/AdvReac Type Severity Reaction Status Date / Time Penicillins Allergy Unknown Unknown Verified 02/09/24 12:17 Childhood Physical Exam Vitals: Vital Signs Temp Pulse Resp BP Pulse Ox 02/09/24 13:28 79 16 128/96 96 02/09/24 12:12 97.6 F 78 16 156/86 97 Intake and Output 02/08/24 02/09/24 02/09/24 22:59 06:59 14:59 Other: Weight 90.718 kg Results CBC & Chem 7: 02/09/24 13:26 02/09/24 13:26 Labs: Abnormal Lab Results - Last 24 Hours (Table) 02/09/24 02/09/24 Range/Units 13:26 13:26 PT 9.6 L (10.0-12.5) sec Sodium 136 L (137-145) mmol/L Potassium 5.2 H (3.5-5.1) mmol/L Glucose 127 H (74-99) mg/dL Creatine Kinase 172 H (55-170) U/L
--- NOTE | 2024-02-10 12:57 | P.PN ---
Subjective Progress Note Date: 02/10/24 patient is a 73-year-old gentleman past medical history significant for recently diagnosed diabetes mellitus, who presented to the ER for concern of headache. Patient states that he was all right 10 days back when he started noticing blurred vision and headache. Patient also complaining of increased let hargy and weakness. Patient stated that he has been feeling more tired than normal. Blurred vision is present throughout the day but mostly in the left eye. Denies any slurred speech. Denies weakness of any extremity. Headache has been intermittent, present in the temporal region mostly on the left side. Denies any nausea or vomiting associated with this headache. Because of the symptoms, patient went to see an hand patcher who told him to come to the ER Initial lab work done in the ER showed WBC 7.5, hemoglobin 15.8, platelet count 284, sodium 136, potassium 5.2, BUN 20, creatinine 0.78, glucose 127, CK1 72 EKG done in the ER showed heart rate of70, no ST segment elevation or depression seen, no T-wave inversions seen. Chest x-ray done in the ER showed no acute cardiopulmonary process CT head done showed no acute intracranial process CTA head and neck done showed no significant stenosis, aneurysm or thrombus in the intracranial circulation Patient admitted to internal medicine service 02/09. Patient seen and examined. Still having blurred vision. Headache has improved. Neurology evaluated the patient, ordered MRI brain REVIEW OF SYSTEMS: CONSTITUTIONAL: No fever, no malaise,. CARDIOVASCULAR: No chest pain, no palpitations, no syncope. PULMONARY: No shortness of breath, no cough, GASTROINTESTINAL: No diarrhea, no nausea, no vomiting, no abdominal pain. NEUROLOGICAL: As mentioned above PHYSICAL EXAMINATION: GENERAL: The patient is alert and oriented x3, not in any acute distress. Well developed, well nourished. HEENT: Pupils are round and equally reacting to light. EOMI. No scleral icterus. No conjunctival pallor. Normocephalic, atraumatic. No pharyngeal erythema. No thyromegaly. CARDIOVASCULAR: S1 and S2 present. No murmurs, rubs, or gallops. PULMONARY: Chest is clear to auscultation, no wheezing or crackles. ABDOMEN: Soft, nontender, nondistended, normoactive bowel sounds. No palpable organomegaly. MUSCULOSKELETAL: No joint swelling or deformity. EXTREMITIES: No cyanosis, clubbing, or pedal edema. NEUROLOGICAL: Gross neurological examination did not reveal any focal deficits. SKIN: No rashes. Assessment and plan Headache Blurred vision Diabetes mellitus Monitor vital signs Monitor CBC Monitor CMP Continue telemetry monitoring Continue neurochecks CRP and ESR are normal Ordered 2D echo Monitor blood sugar level, continue/scale insulin MRI brain ordered Neurology following Labs and medication were reviewed.. Continue same treatment. Continue with symptomatic treatment. Resume home medication. Monitor labs and vitals. DVT and GI prophylaxis. Further recommendations as per clinical course of the patient Dictation was produced using [employer] dictation software. please excuse any grammatical, word or spelling errors. Objective - Vital Signs Vital signs: Vital Signs Temp 97.8 F 02/10/24 07:07 Pulse 65 02/10/24 07:07 Resp 18 02/10/24 07:07 BP 137/74 02/10/24 07:07 Pulse Ox 94 L 02/10/24 07:07 FiO2 Intake & Output 02/09/24 02/10/24 02/10/24 18:59 06:59 18:59 Intake Total 75 Output Total 650 700 Balance -575 -700 Weight 90.718 kg 90.718 kg Intake: IV 75 0.9 75 Output: Urine 650 700 Other: Voiding Method Toilet # Voids 1 - Labs CBC & Chem 7: 02/09/24 13:26 02/09/24 13:26 Labs: Abnormal Lab Results - Last 24 Hours (Table) 02/09/24 02/09/24 02/09/24 Range/Units 13:26 13:26 20:07 PT 9.6 L (10.0-12.5) sec Sodium 136 L (137-145) mmol/L Potassium 5.2 H (3.5-5.1) mmol/L Glucose 127 H (74-99) mg/dL POC Glucose (mg/dL) 187 H (70-110) mg/dL Hemoglobin A1c (<=6.0) % Creatine Kinase 172 H (55-170) U/L 02/10/24 02/10/24 02/10/24 Range/Units 05:57 06:17 12:09 PT (10.0-12.5) sec Sodium (137-145) mmol/L Potassium (3.5-5.1) mmol/L Glucose (74-99) mg/dL POC Glucose (mg/dL) 143 H 144 H (70-110) mg/dL Hemoglobin A1c 9.5 H (<=6.0) % Creatine Kinase (55-170) U/L
--- NOTE | 2024-02-10 14:37 | P.CNNES ---
History of Present Illness Consult date: 02/10/24 Requesting physician: Jez Marquez Reason for Consult: headache, blurred vision History of Present Illness: This is a 73-year-old dominant with history of recent diagnosis diabetes mellitus, who presents because of diplopia and headache. Patient is accompanied with his . It seems the patient has a had a bilateral cataract surgeries in December the right eye was in 12/20/2023 in the left eye was Lillian 2023. Patient felt since the surgery he's been having double vision and blurry vision over the left eye and he feels its one object over the other predominant over the left than the right. He's also having headache over the bilateral temporal and retroorbital left more than the right. Denies any nausea or vomiting. Denies any photophobia or phonophobia He had multiple follow-up visits with his hand trucker and was told and was not an ophthalmologic issue and the he was told that he needed to rule out any stroke according to the . According to patient he has chronic ptosis of the left eye and that's on ongoing for years. He does feel he is tired with ambulation and has to rest in the last couple months. He was diagnosed with a recent diagnosis of diabetes mellitus and it's 9.4 that hemoglobin A1c. Of note he was supposed to have the cervical fusion but because of his recent uncontrolled diabetes mellitus was held. Patient has chronic lower back pain and had surgery on it and he is on gabapentin. Her to the his left lower extremity is turned purple H then the white in coloration weeks ago. Some of the workup during his hospital visit consisted of: ESR is 14. Hemoglobin A1c is 9.55. CRP is less than 0.5. CT head is reported as no acute intracranial process. Age-related involution and age-related microangiopathy. I personally reviewed the CT and I agree there is no acute or subacute ischemia. CT angiography of the head and neck is reported as no evidence of dissection of cervical internal carotid artery or vertebral artery or any evidence of significant stenosis at the carotid bifurcation. No evidence of intracranial high-grade stenosis or intracranial aneurysm. 2-D echo was reported as technically difficult study. Normal left ventricle size and systolic function. Very limited Doppler study with no significant abnormality. Review of Systems Review of system: The 12 point system was reviewed and apparent positive and negative per HPI. Past Medical History Past Medical History: Cancer, Musculoskeletal Disorder, Prostate Disorder Additional Past Medical History / Comment(s): ENLARGED PROSTATE,DDD; HYPOGLYCEMIA, HX OF TESTICULAR CA. , HERNIA AT ABD INCISION. History of Any Multi-Drug Resistant Organisms: None Reported Past Surgical History: Back Surgery Additional Past Surgical History / Comment(s): TESTICLE REMOVED FOR CA,BENIGN LUMP REMOVED NECK, EXPLORATORY SURGERY. Past Anesthesia/Blood Transfusion Reactions: No Reported Reaction Past Psychological History: No Psychological Hx Reported Smoking Status: Former smoker Past Alcohol Use History: None Reported Past Drug Use History: None Reported - Past Family History Mother Family Medical History: No Reported History Medications and Allergies Home Medications Medication Instructions Recorded Confirmed Type Atorvastatin [Lipitor] 40 mg PO DAILY 02/09/24 02/09/24 History Gabapentin [Neurontin] 200 mg PO BID@1200,2100 02/09/24 02/09/24 History Semaglutide [Ozempic] 0.25 mg SQ DIRECTED 02/09/24 02/09/24 History metFORMIN HCL [Glucophage] 500 mg PO BID 02/09/24 02/09/24 History prednisoLONE ACETATE 1% OPHTH See Taper LEFT EYE DIRECTED 02/09/24 02/09/24 History [Pred Forte 1%] Allergies Allergy/AdvReac Type Severity Reaction Status Date / Time Penicillins Allergy Unknown Unknown Verified 02/09/24 17:07 Childhood Physical Examination - Vital Signs Vital Signs: Vital Signs Temp Pulse Pulse Resp BP BP Pulse Ox 02/10/24 07:07 97.8 F 65 18 137/74 94 L 02/10/24 02:00 97.9 F 58 L 18 114/73 96 02/09/24 20:00 98.1 F 82 16 122/84 97 02/09/24 18:11 98.7 F 79 18 121/81 93 L Intake and Output 02/09/24 02/10/24 02/10/24 22:59 06:59 14:59 Intake Total 75 Output Total 650 700 Balance 75 -650 -700 Intake: IV 75 0.9 75 Output: Urine 650 700 Other: Voiding Method Toilet Toilet # Voids 1 Weight 90.718 kg GENERAL: The patient is lying in bed and is not in acute distress. NEUROLOGICAL: Higher mental function: The patient is awake, alert, oriented to self, place and time. Patient is following commands. No aphasia and no neglect. Cranial nerves: The pupils are round, equal and reactive to light and accommodation. Visual cummings are full to confrontation throughout. Extraocular movement is intact no nystagmus is noted. Facial sensation is normal to touch throughout. The facial strength is normal throughout. Hearing is normal bilaterally to hand rub. Tongue is midline and moved [id number] without any difficulty. No dysarthria is noted. Shoulder shrug is normal bilaterally. Motor: The strength is 5 over 5 throughout. Normal tone and bulk. Cerebellum: Normal finger to nose bilaterally. Sensation: Sensation is normal to touch throughout. Reflexes (right/left): 2+ upper while lowers are 1+. Plantars are mute bilaterally. Results - Laboratory Findings CBC and BMP: 02/09/24 13:26 02/09/24 13:26 Abnormal Lab Findings: Abnormal Labs 02/09/24 02/09/24 02/09/24 13:26 13:26 20:07 PT 9.6 L Sodium 136 L Potassium 5.2 H Glucose 127 H POC Glucose (mg/dL) 187 H Hemoglobin A1c Creatine Kinase 172 H 02/10/24 02/10/24 02/10/24 05:57 06:17 12:09 PT Sodium Potassium Glucose POC Glucose (mg/dL) 143 H 144 H Hemoglobin A1c 9.5 H Creatine Kinase Assessment and Plan Assessment: This is a 73-year-old gentleman who presents because of diplopia and blurry vision with headache over the left side more than the right eye since he had his a cadaveric surgery in December of this year. He was evaluated by his hand trucker multiple times and he was notified and was not an ophthalmological issue and he needed to rule out stroke according to the . He was recently diagnosed with uncontrolled diabetes mellitus of 9.4. Diplopia predominately over the left eye with cephalgia: Unsure exactly etiology. One of the differential is subacute stroke versus diabetic cranial neuropathy. ESR and CRP are normal and temporal arteritis is unlikely. Ongoing chronic ptosis of the left eye with weakness with ambulation: Unsure exactly etiology rule out myasthenia gravis versus isolated ophthalmological issue for the eye and that his comorbidities with diabetic neuropathy leading into the weakness. Recent bilateral cataract surgery both eyes Uncontrolled diabetes mellitus and his hemoglobin A1c in our facility is 9.5 Ongoing neck pain and pending cervical fusion Chronic lower back pain status post surgery Plan: I ordered MRI of the brain, TSH, vitamin B12 and folate I ordered acetylcholine receptor antibody and musk antibody to rule out myasthenia gravis recommend the patient to follow-up with a neurologist for further management. I started the patient on aspirin 325 daily. Patient is on Lipitor 40 mg daily Consulted PT and OT for gait training Continue neuro checks Cardiac monitoring I ordered a day. For the patient's discoloration of the left foot that happened a few weeks ago in which it turned into propofol and that then white all defer the management to the patient's primary/PCP. We'll defer the rest of the medical measure the primary team Recommend patient to follow-up with a neurologist as an outpatient within 2 weeks. The plan discussed with the patient, his was at bedside and the primary team. Thank for the consultation Time with Patient: Greater than 30
--- NOTE | 2024-02-10 15:46 | MR ---
EXAMINATION TYPE: MR brain wo/w con DATE OF EXAM: 02/10/2024 3:38 PM CLINICAL INDICATION:Male, 73 years old with history of diplopia, cephalgia; PHH, Diplopia, cephalgia COMPARISON: 02/09/2024 TECHNIQUE: Multi planar, multi sequence imaging was performed through the brain including: T1, T2, In version recovery, susceptibility weighted imaging and gradient echo imaging and Diffusion weighted im aging. The patient was then given intravenous contrast and multi planar, T1 fat-saturation images wer e obtained. IV Contrast: 9 cc Gadavist FINDINGS: The diane-white junctions, ventricular system, basal cisterns appear unremarkable. Diffusion-weighted imaging shows no evidence of restricted diffusion to suggest acute/subacute infarct. Intracranial ar terial flow voids are maintained. Midline structures show no abnormality. Scattered foci of high T2 s ignal intensity are seen within the periventricular white matter. The susceptibility weighted images do not reveal single focus of blooming artifact in the left parietal region compatible with microhemo rrhage.. After administration of gadolinium, no abnormal enhancement is seen. Remote left cerebellar injury with stenosis. The bone marrow signal is within normal limits. Paranasal sinuses and mastoid air cells: No significant paranasal sinus disease. Visualized orbits: Orbital contents are intact. The optic nerves are symmetrical. No evidence normal intraconal extraconal mass. The optic chiasm is within normal limits. IMPRESSION: 1. No evidence of intracranial mass, acute/subacute infarct, or abnormal enhancement. 2. Nonspecific white matter changes, likely related to small vessel ischemic disease.
[2024-02-10 17:28] LABS: Glucose,Whole Blood 112 mg/dL (70-110)
[2024-02-10] MEDS: ASPIRIN 325 MG TAB PO SCH (18:01)
[2024-02-10 20:29] LABS: Glucose,Whole Blood 185 mg/dL (70-110)
[2024-02-10 20:31] VITALS: RESP 16
[2024-02-11 06:00] LABS: Glucose,Whole Blood 132 mg/dL (70-110)
[2024-02-11 07:49] VITALS: BP 135/90; PULSE 76; TEMP 97.7
[2024-02-11 11:18] LABS: HCT 44.9 % (39.6-50.0); HGB 14.9 g/dL (13.0-17.0); MCH 31.3 pg (27.0-32.0); MCHC 33.2 g/dL (32.0-37.0); MCV 94.3 FL (80.0-97.0); Mean Platelet Volume 9.4 FL (9.5-12.2); NRBC Per 100 WBC 0 X 10*3/uL (0.00-0.01); Platelet Count 257 X 10*3/uL (140-440); RBC 4.76 X 10*6/uL (4.40-5.60); RDW 11.9 % (11.5-14.5); WBC 5.31 X 10*3/uL (4.50-10.00)
[2024-02-11 11:19] LABS: Basophils # (A) 0.02 X 10*3/uL (0.00-0.10); Basophils % (A) 0.4 %; Eosinophils # (A) 0.09 X 10*3/uL (0.04-0.35); Eosinophils % (A) 1.7 %; Lymphocytes # (A) 1.64 X 10*3/uL (0.90-5.00); Lymphocytes % (A) 30.9 %; Monocytes # (A) 0.41 X 10*3/uL (0.20-1.00); Monocytes % (A) 7.7 %; Neutrophils # (A) 3.13 X 10*3/uL (1.80-7.70); Neutrophils % (A) 58.9 %
[2024-02-11 11:42] LABS: ALT 24 U/L (10-49); AST 29 U/L (14-35); Alkaline Phosphatase 64 U/L (41-126); Blood Urea Nitrogen 14.2 mg/dL (9.0-27.0); Calcium 9.1 mg/dL (8.7-10.3); Carbon Dioxide 24.9 mmol/L (21.6-31.8); Chloride 106 mmol/L (96-109); Globulin 2.1 g/dL (1.6-3.3); Glucose 138 mg/dL (70-110); Potassium 4.8 mmol/L (3.5-5.5); Sodium 141 mmol/L (135-145); Total Bilirubin 0.5 mg/dL (0.3-1.2); Total Protein 6.1 g/dL (6.2-8.2)
[2024-02-11 11:53] LABS: Glucose,Whole Blood 131 mg/dL (70-110)
--- NOTE | 2024-02-11 13:04 | P.DS ---
Providers Date of admission: 02/09/24 16:58 Expected date of discharge: 02/11/24 Attending physician: Jez Marquez MD Consults: 02/09/24 14:56 Consult Physician Routine Consulting Provider: Torsten Obrien Consult Reason/Comments: Headache, blurred vision Do you want consulting provider notified?: Yes Primary care physician: Leroy Sarmiento [facility] Course: Discharge diagnoses; Headache Blurred vision Diabetes mellitus Hospital course; patient is a 73-year-old gentleman past medical history significant for recently diagnosed diabetes mellitus, who presented to the ER for concern of headache. Patient states that he was all right 10 days back when he started noticing blurred vision and headache. Patient also complaining of increased lethargy and weakness. Patient stated that he has been feeling more tired than normal. Blurred vision is present throughout the day but mostly in the left eye. Denies any slurred speech. Denies weakness of any extremity. Headache has been intermittent, present in the temporal region mostly on the left side. Denies any nausea or vomiting associated with this headache. Because of the symptoms, patient went to see an medical staff specialist who told him to come to the ER Initial lab work done in the ER showed WBC 7.5, hemoglobin 15.8, platelet count 284, sodium 136, potassium 5.2, BUN 20, creatinine 0.78, glucose 127, CK1 72 EKG done in the ER showed heart rate of70, no ST segment elevation or depression seen, no T-wave inversions seen. Chest x-ray done in the ER showed no acute cardiopulmonary process CT head done showed no acute intracranial process CTA head and neck done showed no significant stenosis, aneurysm or thrombus in the intracranial circulation Patient admitted to internal medicine service 02/09. Patient seen and examined. Still having blurred vision. Headache has improved. Neurology evaluated the patient, ordered MRI brain 02/10. Patient seen and examined. MRI brain negative for acute stroke. Neurology evaluated patient, recommended acetylcholine receptor antibodies and musk antibodies, recommend keeping patient on aspirin and Lipitor. PHYSICAL EXAMINATION: GENERAL: The patient is alert and oriented x3, not in any acute distress. Well developed, well nourished. HEENT: Pupils are round and equally reacting to light. EOMI. No scleral icterus. No conjunctival pallor. Normocephalic, atraumatic. No pharyngeal erythema. No thyromegaly. CARDIOVASCULAR: S1 and S2 present. No murmurs, rubs, or gallops. PULMONARY: Chest is clear to auscultation, no wheezing or crackles. ABDOMEN: Soft, nontender, nondistended, normoactive bowel sounds. No palpable organomegaly. MUSCULOSKELETAL: No joint swelling or deformity. EXTREMITIES: No cyanosis, clubbing, or pedal edema. NEUROLOGICAL: Gross neurological examination did not reveal any focal deficits. SKIN: No rashes. Dictation was produced using [employer] dictation software. please excuse any grammatical, word or spelling errors. Plan - Discharge Summary Discharge Rx Participant: Yes New Discharge Prescriptions: No Action Atorvastatin [Lipitor] 40 mg PO DAILY Gabapentin [Neurontin] 200 mg PO BID@1200,2100 Semaglutide [Ozempic] 0.25 mg SQ DIRECTED prednisoLONE ACETATE 1% OPHTH [Pred Forte 1%] See Taper LEFT EYE DIRECTED metFORMIN HCL [Glucophage] 500 mg PO BID Discharge Medication List Atorvastatin [Lipitor] 40 mg PO DAILY 02/09/24 [History] Gabapentin [Neurontin] 200 mg PO BID@1200,2100 02/09/24 [History] Semaglutide [Ozempic] 0.25 mg SQ DIRECTED 02/09/24 [History] metFORMIN HCL [Glucophage] 500 mg PO BID 02/09/24 [History] prednisoLONE ACETATE 1% OPHTH [Pred Forte 1%] See Taper LEFT EYE DIRECTED 02/09/24 [History] Follow up Appointment(s)/Referral(s): Leroy Anderson DO [Primary Care Provider] - 1-2 days
--- NOTE | 2024-02-11 14:48 | P.PN ---
Subjective Progress Note Date: 02/11/24 I am following-up with patient and he feels he is doing better. No new neurological issues. Objective - Vital Signs Vital signs: Vital Signs Temp 97.7 F 02/11/24 07:00 Pulse 76 02/11/24 07:00 Resp 16 02/11/24 09:00 BP 135/90 02/11/24 07:00 Pulse Ox 97 02/11/24 07:00 FiO2 Intake & Output 02/10/24 02/11/24 02/11/24 18:59 06:59 18:59 Output Total 700 Balance -700 Output: Urine 700 Other: Voiding Method Toilet # Voids 1 1 - Exam GENERAL: The patient is lying in bed and is not in acute distress. NEUROLOGICAL: Higher mental function: The patient is awake, alert, oriented to self, place and time. Patient is following commands. No aphasia and no neglect. Cranial nerves: The pupils are round, equal and reactive to light and accommodation. Visual cummings are full to confrontation throughout. Extraocular movement is intact no nystagmus is noted. After one minute of upward gaze there is no ptosis noted. Facial sensation is normal to touch throughout. The facial strength is normal throughout. Hearing is normal bilaterally to hand rub. Tongue is midline and moved [id number] without any difficulty. No dysarthria is noted. Shoulder shrug is normal bilaterally. Motor: The strength is 5 over 5 throughout. Normal tone and bulk. Cerebellum: Normal finger to nose bilaterally. Sensation: Sensation is normal to touch throughout. Reflexes (right/left): 2+ upper while lowers are 1+. Plantars are mute bilaterally. Some of the workup during his hospital visit consisted of: ESR is 14. Hemoglobin A1c is 9.55. CRP is less than 0.5. vitamin B12 is 397 Serum folate is 16.50. TSH is 1.170. MARK is negative. CT head is reported as no acute intracranial process. Age-related involution and age-related microangiopathy. I personally reviewed the CT and I agree there is no acute or subacute ischemia. CT angiography of the head and neck is reported as no evidence of dissection of cervical internal carotid artery or vertebral artery or any evidence of significant stenosis at the carotid bifurcation. No evidence of intracranial high-grade stenosis or intracranial aneurysm. 2-D echo was reported as technically difficult study. Normal left ventricle size and systolic function. Very limited Doppler study with no significant abnormality. MR the brain is reported as no evidence of intracranial mass, acute/subacute infarct or abnormal enhancement. Nonspecific white matter changes, likely rel ated to small vessel ischemic disease. - Labs CBC & Chem 7: 02/11/24 06:37 02/11/24 06:37 Labs: Abnormal Lab Results - Last 24 Hours (Table) 02/10/24 02/10/24 02/11/24 Range/Units 17:26 20:28 05:59 MPV (9.5-12.2) FL Glucose (70-110) mg/dL POC Glucose (mg/dL) 112 H 185 H 132 H (70-110) mg/dL Total Protein (6.2-8.2) g/dL 02/11/24 02/11/24 02/11/24 Range/Units 06:37 06:37 11:51 MPV 9.4 L (9.5-12.2) FL Glucose 138 H (70-110) mg/dL POC Glucose (mg/dL) 131 H (70-110) mg/dL Total Protein 6.1 L (6.2-8.2) g/dL Assessment and Plan Assessment: This is a 73-year-old gentleman who presents because of diplopia and blurry vision with headache over the left side more than the right eye since he had his a cadaveric surgery in December of this year. He was evaluated by his certified lactation educator multiple times and he was notified and was not an ophthalmological issue and he needed to rule out stroke according to the . He was recently diagnosed with uncontrolled diabetes mellitus of 9.4. Diplopia predominately over the left eye with cephalgia: Unsure exactly etiology. One of the differential is subacute stroke versus diabetic cranial neuropathy. ESR and CRP are normal and temporal arteritis is unlikely.MRI of the brain is negative for any acute or subacute stroke or any enhancement Ongoing chronic ptosis of the left eye with weakness with ambulation: Unsure exactly etiology rule out myasthenia gravis versus isolated ophthalmological issue for the eye and that his comorbidities with diabetic neuropathy leading into the weakness. Recent bilateral cataract surgery both eyes Uncontrolled diabetes mellitus and his hemoglobin A1c in our facility is 9.5 Ongoing neck pain and pending cervical fusion Chronic lower back pain status post surgery Plan: I ordered acetylcholine receptor antibody and musk antibody to rule out myasthenia gravis recommend the patient to follow-up with a neurologist for further management but can in meantime follow-up with PCP until he obtain neurol ogist.. I started the patient on aspirin 325 daily. Patient is on Lipitor 40 mg daily Consulted PT and OT for gait training Continue neuro checks Cardiac monitoring For the patient's discoloration of the left foot that happened a few weeks ago in which it turned into propofol and that then white all defer the management to the patient's primary/PCP. We'll defer the rest of the medical measure the primary team Recommend patient to follow-up with a neurologist as an outpatient within 2 weeks. The plan discussed with the patient, his was at bedside and the primary team. Time with Patient: Less than 30
[2024-02-11 16:29] VITALS: BMI 27.8
== END 2024-02-11 13:27 | disposition home or self-care (01) ==
LOC: EC 12:07 → 6NMEDSUR 16:58
PROVIDERS: ADMIT Internal Medicine; ATTEND Internal Medicine
DX: R51.9 Headache, unspecified (principal); H53.2 Diplopia; H53.8 Other visual disturbances; H02.402 Unspecified ptosis of left eyelid; E11.65 Type 2 diabetes mellitus with hyperglycemia; E11.40 Type 2 diabetes mellitus with diabetic neuropathy, unspecified; R55 Syncope and collapse; N40.0 Benign prostatic hyperplasia without lower urinary tract symptoms; R26.2 Difficulty in walking, not elsewhere classified; G89.29 Other chronic pain; M54.50 Low back pain, unspecified; M54.2 Cervicalgia; Z85.47 Personal history of malignant neoplasm of testis; Z87.891 Personal history of nicotine dependence; Z79.84 Long term (current) use of oral hypoglycemic drugs; Z79.899 Other long term (current) drug therapy; Z88.0 Allergy status to penicillin
CPT/HCPCS: 96361; 96374; 99285; 36415; 93005; 97161; 97165; 86041; 80053 ×2; 85652; 84443; 82607; 82550; 82746; 85025 ×2; 85610; 85730; 86140; 86038; 83036; 71046; 70496; 70450; 70498; 70553; G0378 ×3; C8929; J2765; Q9967; A9585; 83519; 93306